=== PATIENT | female | born 1955 | race Caucasian/White ===

== ENCOUNTER 2023-12-29 07:03 | Day surgery (SDC) | payer MEDICARE ==
[2023-12-29] MEDS ORDERED: VIGAMOX/BSS 0.15% SYR IO ONE (07:15)
[2023-12-29] MEDS ORDERED: Sodium Chloride 0.9% 10 ML FLUSH Syringe IJ ONE (07:15)
[2023-12-29] MEDS ORDERED: TRIAMCINOLONE 15 MG/ML INJ INTRAOP ONE (07:15)
[2023-12-29] MEDS ORDERED: BETADINE 5% OPHTHALMIC 30 ML OP ONE (07:15)
[2023-12-29 07:21] VITALS: TEMP 97.7
[2023-12-29] MEDS: TETRACAINE 0.5% STERI-UNIT SOL OP ONE ×2 (07:27→08:00)
[2023-12-29] MEDS: Ak-Dilate OPHTHALMIC*** 1.065 ML, Cyclogyl 1% OPHTH SOL 1.065 ML, GATIFLOXACIN 0.5% OPH... OP ONE (07:27)
[2023-12-29] MEDS ORDERED: Zofran 4 MG/2 ML VIAL IV PRN (09:30)
[2023-12-29] MEDS ORDERED: DIPRIVAN 200 MG/20 ML IV ONE (09:59)
[2023-12-29] MEDS: Lactated Ringers 1,000 ML IV SCH (10:25)
[2023-12-29 10:28] VITALS: RESP 16
[2023-12-29] MEDS: ACETAZOLAMIDE 250 MG TABLET PO ONE (10:30)
[2023-12-29 10:38] VITALS: BP 111/69; PULSE 79; O2SAT 98
== END 2023-12-29 10:47 | disposition home or self-care (01) ==
LOC: SDC 07:03
PROVIDERS: ATTEND Ophthalmology
DX: H25.811 Combined forms of age-related cataract, right eye (principal)
CPT/HCPCS: C1780; J2704; A9270-GY